=== PATIENT | male | born 1990 | race Caucasian/White ===

== ENCOUNTER 2019-12-12 02:00 | Emergency (ER) | payer OTHER, SELFPAY ==
[2019-12-12 03:52] LABS: ALT/SGPT 26 U/L (12-78); AST/SGOT 12 U/L (15-37); Albumin 4.3 g/dL (3.4-5.0); Alkaline Phosphatase 65 U/L (45-117); BUN Blood Urea Nitrogen 11 mg/dL (7-18); Bicarbonate 27 mmol/L (21-32); Bilirubin Direct < 0.1 mg/dL (0-0.2); Bilirubin Total 0.2 mg/dL (0.2-1.0); Glucose Level 90 mg/dL (74-106); Potassium 3.6 mmol/L (3.5-5.1); Protein, Total 7.5 g/dL (6.4-8.2); Sodium Level 142 mmol/L (136-145)
[2019-12-12 03:57] LABS: Protime INR 1.07
[2019-12-12 04:03] LABS: Basophils % 0.2 % (0-1.3); Hematocrit 48.4 % (39.6-49.0); Lymphocytes % 15.2 % (15.3-44.8); MPV 10.1 fL (7.6-11.3); RBC Red Blood Cell Count 5.07 M/uL (4.33-5.43)
--- NOTE | 2019-12-12 05:14 | ER ---
Nurse's Notes [facility] Name: Sigifredo Sutherland Age: 29 yrs Sex: Male : 1990 Arrival Date: 12/12/2019 Time: 02:02 Bed 6 Private MD: Diagnosis: Major depressive disorder, single episode;Suicidal ideations Presentation: 12/11 02:22 Chief complaint: Patient states: STRUGGLES WITH DEPRESSION. WENT INTO THE WATER BUT rv THEN DECIDED TO CALL THE MOTHER. NO CONCRETE PLAN TO HURT HIMSELF. DENIES HURTING OTHERS. VERBALIZED, "NO VALUE IN LIFE", "BRING PAIN TO OTHERS", "HURTING FOR A LONG TIME". Coronavirus screen: The patient has NOT traveled to a country currently being monitored by the [facility] within the last 14 days. Proceed with normal triage procedures. The patient has NOT had contact with any known and/or suspected case of coronavirus. Proceed with normal triage procedures. Ebola Screen: No symptoms or risks identified at this time. Initial Sepsis Screen: Does the patient meet any 2 criteria? No. Patient's initial sepsis screen is negative. Does the patient have a suspected source of infection? No. Patient's initial sepsis screen is negative. Risk Assessment: Do you want to hurt yourself or someone else? Patient reports desire/thoughts of hurting themselves or someone else. Provider notified. 02:22 Method Of Arrival: Ambulatory 02:22 Acuity: MAGDALENE 2 rv 02:33 Onset of symptoms was December 12, 2019 at 01:00. rv Historical: - Allergies: 02:28 No Known Allergies; rv - PMHx: 02:28 Depression; ADD/ADHD; Anxiety; rv - PSHx: 02:28 None; rv - Immunization history:: Adult Immunizations up to date. - Social history:: Smoking status: Patient reports use of chewing tobacco. Screenin:31 Abuse screen: Denies threats or abuse. Denies injuries from another. Nutritional rv screening: No deficits noted. Tuberculosis screening: No symptoms or risk factors identified. Fall Risk None identified. Assessment: 02:29 General: Appears distressed, Behavior is crying. Pain: Denies pain. Neuro: Level of rv Consciousness is awake, alert, obeys commands, Oriented to person, place, time, situation. Cardiovascular: Patient's skin is warm and dry. Respiratory: Airway is patent. Derm: Skin is intact. 05:13 Reassessment: Patient appears in no apparent distress at this time. Patient and/or rv family updated on plan of care and expected duration. Pain level reassessed. Patient is alert, oriented x 3, equal unlabored respirations, skin warm/dry/pink. report given to Mohsen Lobo. 06:48 Reassessment: Patient appears in no apparent distress at this time. Patient and/or rv family updated on plan of care and expected duration. Pain level reassessed. Patient is alert, oriented x 3, equal unlabored respirations, skin warm/dry/pink. Psych: 02:31 Subjective: Patient's mood is sad, hopeless, Delusions are denied, Hallucinations are rv denied Having thoughts of suicide. Denies suicidal plan. Objective: Patient is cooperative, Speech is normal. Interventions: Removed personal items and placed in bag. Patient placed in hospital gown. Searched person for dangerous items. Belonging list filled out. Suicide Risk Assessment: Sad Person Scale: Sex of patient: Male: Score 1 point. Age of patient: Score 1 point if patient 15-34. Depression: Score 1 point if signs of depression are present. Previous Attempt: Score 0 point if patient has not previously attempted suicide. Substance Abuse: Score 0 point if patient does not abuse alcohol or drugs. Rational Thinking: Score 1 point if patient is lacking rational thinking. Social Support: Score 0 if social support is present/available. Relationship: Score 1 point if patient is , , , or for a single male TOTAL POINTS: If total points are 5-6, proposed clinical action is to strongly consider hospitalization, depending upon confidence in the follow-up arrangement. Implement suicide precautions. Safety Checks: Personal items have been removed. Door is open. Visitors are present. Commitment: Patient will be a voluntary commitment. Vital Signs: 02:22 BP 143 / 94; Pulse 109; Resp 19; Temp 98.6; Pulse Ox 99% ; Weight 105.69 kg (R); Height rv 6 ft. 3 in. (190.50 cm); Pain 0/10; 05:08 BP 119 / 68 RA Supine (auto/reg); Pulse 62; Resp 17; Temp 98.2(O); Pulse Ox 99% on R/A; ar5 02:22 Body Mass Index 29.12 (105.69 kg, 190.50 cm) rv ED Course: 02:02 Patient arrived in ED. ag3 02:16 Saad Prince MD is Attending Physician. tw4 02:21 Amari Toussaint, RN is Primary Nurse. rv 02:27 Triage completed. rv 02:28 Arm band placed on Patient placed in the treatment room, on a stretcher, Patient rv notified of wait time. 02:33 Patient has correct armband on for positive identification. rv 02:43 EKG done, by ED staff, reviewed by Saad Prince MD. ar5 03:00 Inserted saline lock: 20 gauge in left antecubital area, using aseptic technique. Blood rv collected. 04:15 Initiated transfer by phone to [facility]. mt 04:18 Faxed chart to [facility], [facility], [facility], [facility], [facility], [facility], [facility] and [facility]. 04:[address] [facility] called for Nurse to Nurse with Hiren. ms 05:[address] [facility] called for DR to DR report. mt 05:14 No provider procedures requiring assistance completed. rv 06:49 IV discontinued, intact, bleeding controlled, No redness/swelling at site. Pressure rv dressing applied. Administered Medications: No medications were administered Outcome: 05:13 ER care complete, transfer ordered by . tw4 06:48 Transferred by ground EMS to other acute care facility: [facility]. Transfer rv form completed. X-rays sent w/ patient. 06:48 Condition: unchanged 06:48 Discharge instructions given to patient, family, Instructed on the need for transfer, Demonstrated understanding of instructions. 06:49 Patient left the ED. rv Signatures: Sarah Ryan ms Saad Prince MD MD tw4 Amari Toussaint, RN RN rv April Meier 3 Lin Miranda ar5 Corrections: (The following items were deleted from the chart) 02:43 02:43 EKG done, by ED staff, ar5 ar5 04:58 04:56 Initiated transfer by phone with [facility] vaishali ms
--- NOTE | 2019-12-12 05:14 | EDPHYS ---
Physician Documentation [facility] Name: Sigifredo Sutherland Age: 29 yrs Sex: Male : 1990 Arrival Date: 12/12/2019 Time: 02:02 Bed 6 Private MD: ED Physician Saad Prince HPI: 12/11 04:04 This 29 yrs old Male presents to ER via Ambulatory with complaints of tw4 Suicidal Ideation, Depression. 04:04 The patient presents to the emergency department with suicide ideation. Onset: The tw4 symptoms/episode began/occurred today. Past psychiatric history: Prior diagnosis: no previous psychiatric diagnosis known, Psychiatric medications include: none. Associated signs and symptoms: The patient has no apparent associated signs or symptoms. Severity of symptoms: At their worst the symptoms were moderate in the emergency department the symptoms are unchanged. The patient has not experienced similar symptoms in the past. 04:05 The patient presents to the emergency department with suicide ideation, and the patient tw4 has a plan, drown himslef. Historical: - Allergies: 02:28 No Known Allergies; rv - PMHx: 02:28 Depression; ADD/ADHD; Anxiety; rv - PSHx: 02:28 None; rv - Immunization history:: Adult Immunizations up to date. - Social history:: Smoking status: Patient reports use of chewing tobacco. ROS: 04:04 Constitutional: Negative for fever, chills, and weight loss, Eyes: Negative for injury, tw4 pain, redness, and discharge, Cardiovascular: Negative for chest pain, palpitations, and edema, Respiratory: Negative for shortness of breath, cough, wheezing, and pleuritic chest pain, Abdomen/GI: Negative for abdominal pain, nausea, vomiting, diarrhea, and constipation, Back: Negative for injury and pain, MS/Extremity: Negative for injury and deformity, Skin: Negative for injury, rash, and discoloration. 04:04 Neuro: Negative for headache, weakness, numbness, tingling, and seizure. 04:04 Neuro: Positive for 04:04 Psych: Positive for depression, suicide gesture, suicidal ideation. Exam: 04:08 Constitutional: This is a well developed, well nourished patient who is awake, alert, tw4 and in no acute distress. Head/Face: Normocephalic, atraumatic. Chest/axilla: Normal chest wall appearance and motion. Nontender with no deformity. No lesions are appreciated. Cardiovascular: Regular rate and rhythm with a normal S1 and S2. No gallops, murmurs, or rubs. Normal PMI, no JVD. No pulse deficits. Respiratory: Lungs have equal breath sounds bilaterally, clear to auscultation and percussion. No rales, rhonchi or wheezes noted. No increased work of breathing, no retractions or nasal flaring. Abdomen/GI: Soft, non-tender, with normal bowel sounds. No distension or tympany. No guarding or rebound. No evidence of tenderness throughout. Back: No spinal tenderness. No costovertebral tenderness. Full range of motion. MS/ Extremity: Pulses equal, no cyanosis. Neurovascular intact. Full, normal range of motion. Neuro: Awake and alert, GCS 15, oriented to person, place, time, and situation. Cranial nerves II-XII grossly intact. Motor strength 5/5 in all extremities. Sensory grossly intact. Cerebellar exam normal. Normal gait. Vital Signs: 02:22 BP 143 / 94; Pulse 109; Resp 19; Temp 98.6; Pulse Ox 99% ; Weight 105.69 kg (R); Height rv 6 ft. 3 in. (190.50 cm); Pain 0/10; 05:08 BP 119 / 68 RA Supine (auto/reg); Pulse 62; Resp 17; Temp 98.2(O); Pulse Ox 99% on R/A; ar5 02:22 Body Mass Index 29.12 (105.69 kg, 190.50 cm) rv MDM: 02:22 Patient medically screened. tw4 04:08 Differential diagnosis: acute psychotic break, depression. Data reviewed: vital signs, tw4 nurses notes. Data reviewed: lab test result(s), CBC, drug level(s), hepatic panel, EKG. Data interpreted: Pulse oximetry: Interpretation: normal. Test interpretation: by ED physician or midlevel provider: ECG. Counseling: I had a detailed discussion with the patient and/or guardian regarding: the historical points, exam findings, and any diagnostic results supporting the discharge/admit diagnosis, lab results. Awaiting: Psychiatric publisher assistant. 12/11 02:22 Order name: Acetaminophen [facility] 12/11 02:22 Order name: Basic Metabolic Panel 12/11 02:22 Order name: CBC with Diff 12/11 02:22 Order name: ETOH Level 12/11 02:22 Order name: Hepatic Function 12/11 02:22 Order name: PT-INR 12/11 02:22 Order name: Ptt, Activated 12/11 02:22 Order name: Salicylate 12/11 02:22 Order name: Urine Drug Screen 12/11 02:22 Order name: EKG; Complete Time: 02:23 12/11 02:22 Order name: EKG - Nurse/Tech; Complete Time: 02:43 12/11 02:22 Order name: IV Saline Lock; Complete Time: 02:43 12/11 02:22 Order name: Labs collected and sent; Complete Time: 02:43 12/11 02:22 Order name: Urine Dipstick-Ancillary (obtain specimen); Complete Time: 04:56 tw4 EC:08 Rate is 99 beats/min. Rhythm is regular. QRS Vian is Normal. HI interval is normal. QRS tw4 interval is normal. QT interval is normal. No Q waves. T waves are Normal. No ST changes noted. Clinical impression: Normal ECG. Interpreted by me. Reviewed by me. Administered Medications: No medications were administered Disposition: 12/12/19 05:13 Transfer ordered to Psych Facility. Diagnosis are Major depressive disorder, single episode, Suicidal ideations. - Reason for transfer: Higher level of care. - Accepting physician is Dr Cisneros. - Condition is Stable. - Problem is new. - Symptoms are unchanged. Signatures: Dispatcher [employer] Saad Olivares MD MD tw4 Amari Toussaint RN RN rv Corrections: (The following items were deleted from the chart) 06:49 05:13 12/12/2019 05:13 Transfer ordered to Psych Facility. Diagnosis is Major rv depressive disorder, single episode; Suicidal ideations. Reason for transfer: Higher level of care. Accepting physician is Dr Cisneros. Condition is Stable. Problem is new. Symptoms are unchanged. tw4
[2019-12-12 05:17] LABS: Barbiturates NEGATIVE (NEGATIVE); Benzodiazepines NEGATIVE (NEGATIVE); Cocaine POSITIVE (NEGATIVE); METHAMPHETAM NEGATIVE (NEGATIVE); Methadone NEGATIVE (NEGATIVE); Opiates NEGATIVE (NEGATIVE); Phencyclidine NEGATIVE (NEGATIVE); THC Cannibis POSITIVE (NEGATIVE)
[2019-12-12 06:57] VITALS: O2SAT 99
[2019-12-12 06:58] VITALS: BP 119/68; TEMP 98.2
--- NOTE | 2019-12-12 08:49 | EKG ---
Test Date: 2019-12-12 Test Time: 02:38:34 Assembly Hand: LIBRADO MEASUREMENT RESULTS: Intervals: Rate: 99 [place]: 156 QRSD: 92 QT: 332 QTc: 426 [place]: P: 63 [place]: 156 QRS: 3 T: 45 INTERPRETIVE STATEMENTS: Normal sinus rhythm Normal ECG No previous ECG available for comparison Electronically Signed On 12-12-19 08:48:16 CDT by Maciel Gambino
== END 2019-12-12 06:49 ==
LOC: ER 02:00
DX: R45.851 Suicidal ideations (principal); F17.220 Nicotine dependence, chewing tobacco, uncomplicated
CPT/HCPCS: 36415; 80048; 80076; 80307; 80320; 80329; 85025; 85610; 85730; 93005; 99285

== ENCOUNTER 2023-01-25 08:17 | Emergency (ER) | payer SELFPAY ==
--- OUTSIDE RECORDS SUMMARY | 2023-01-25 08:20 | XMS REPORT | Continuity of Care Document ---
:1990 Author Organization [facility] t Address [address] [place] [address] Care Team Providers Name Role Phone CLIFF BRAY Primary Care Physician Unavailable MATHIEU BROOKE Attending Clinician Unavailable Problems This patient has no known problems. Allergies, Adverse Reactions, Alerts Allergy Allergy Status Severity Reaction(s) Onset Inactive Treating Comm ents Source Name Type Date Date Clinician NO KNOWN Drug Active [facility] Medications This patient has no known medications. Procedures This patient has no known procedures. Encounters Start End Encounter Admission Attending Care Care Encounter Source Date/Time Date/Time Type Type Clinicians Facility Department ID 2020-12-29 2020-12-29 Outpatient Mariangel BROOKE [facility] [id number] [facility] 17:00:00 16:59:45 MATHIEU [facility] 2020-12-21 2020-12-21 Outpatient [facility] [id number] [facility] 14:15:00 14:15:00 [facility] 2020-11-23 2020-11-23 [facility] [id number] [facility] 14:10:00 14:10:00 [facility] Results This patient has no known results.
[2023-01-25] MEDS ORDERED: NA CHLORIDE 0.9% 1,000 ML ONE ×2 (09:18→10:10)
[2023-01-25] MEDS ORDERED: FAMOTIDINE 20 MG/2 ML VIAL IV ONE (09:18)
[2023-01-25] MEDS ORDERED: ONDANSETRON 4 MG/2 ML VIAL ONE ×2 (09:18→10:25)
[2023-01-25] MEDS ORDERED: KETOROLAC 30 MG/ML INJ ONE (09:18)
[2023-01-25 09:24] LABS: Absolute Lymphocytes (CBC) 1.2 K/uL (0.7-4.9); Hematocrit 46.1 % (39.6-49.0); Lymphocytes % 9.6 % (15.3-44.8); MCV 92.9 fL (80-100); MPV 9.1 fL (7.6-11.3); RBC Red Blood Cell Count 4.96 M/uL (4.33-5.43)
[2023-01-25 09:53] LABS: Albumin 5.1 g/dL (3.4-5.0); Potassium 4.1 mEq/L (3.5-5.1); Protein, Total 8.5 g/dL (6.4-8.2)
--- NOTE | 2023-01-25 11:42 | ER ---
Nurse's Notes [facility] Name: Sigifredo Sutherland Age: 32 yrs Sex: Male : 1990 Arrival Date: 01/25/2023 Time: 08:17 Bed 16 Private MD: Diagnosis: Nausea with vomiting, unspecified;Rhabdomyolysis;Dehydration Presentation: 01/25 08:39 Chief complaint: Patient states: N/V that began 12 hours ago. Coronavirus screen: ss Client denies travel out of the [place] in the last 14 days. Ebola Screen: Patient denies exposure to infectious person. Patient denies travel to an Ebola-affected area in the 21 days before illness onset. Initial Sepsis Screen: Does the patient meet any 2 criteria? No. Patient's initial sepsis screen is negative. Does the patient have a suspected source of infection? No. Patient's initial sepsis screen is negative. Risk Assessment: Do you want to hurt yourself or someone else? Patient reports no desire to harm self or others. Onset of symptoms was January 24, 2023. 08:39 Method Of Arrival: Ambulatory 08:39 Acuity: MAGDALENE 3 Historical: - Allergies: 08:43 No Known Allergies; ss - Home Meds: 08:43 None [Active]; ss - PMHx: 08:43 ADD/ADHD; Anxiety; Depression; ss - PSHx: 08:43 None; ss - Immunization history:: Client reports receiving the 2nd dose of the Covid vaccine. - Social history:: Smoking status: Reported history of juuling and/or vaping. Screenin:[address] [facility] ED Fall Risk Assessment (Adult) History of falling in the last 3 months, ph including since admission No falls in past 3 months (0 pts) Confusion or Disorientation No (0 pts) Intoxicated or Sedated No (0 pts) Impaired Gait No (0 pts) Mobility Assist Device Used No (0 pt) Altered Elimination No (0 pt) Score/Fall Risk Level 0 - 2 = Low Risk Oriented to surroundings, Maintained a safe environment, Hourly rounding (assess needs \T\ fall precautionary measures) done. Abuse screen: Denies threats or abuse. Denies injuries from another. Nutritional screening: No deficits noted. Tuberculosis screening: No symptoms or risk factors identified. Assessment: 09:38 General: Appears in no apparent distress. uncomfortable, Behavior is calm, cooperative, ph appropriate for age, Reports chills for Denies fever. Pain: Complains of pain in back. Neuro: Level of Consciousness is awake, alert, obeys commands, Oriented to person, place, time, situation. Cardiovascular: Capillary refill < 3 seconds in bilateral fingers Patient's skin is warm and dry. Respiratory: Airway is patent Respiratory effort is even, unlabored. GI: Abdomen is non-distended, Reports nausea, vomiting, Patient currently denies abdominal pain, diarrhea. Derm: Skin is pink, warm \T\ dry. Musculoskeletal: Circulation, motion, and sensation intact. Range of motion: intact in all extremities. 12:12 Reassessment: Patient appears in no apparent distress at this time. Patient and/or ph family updated on plan of care and expected duration. Pain level reassessed. Patient is alert, oriented x 3, equal unlabored respirations, skin warm/dry/pink. Pt given water and crackers for PO challenge approx 15 minutes ago, now actively vomiting. Vital Signs: 08:39 BP 137 / 79; Pulse 61; Resp 18; Temp 97.9(O); Pulse Ox 100% on R/A; Weight 113.4 kg; ss Height 6 ft. 0 in. ; Pain 8/10; 09:39 BP 120 / 79; Pulse 64; Resp 18; Pulse Ox 98% on R/A; ph 08:39 Body Mass Index 33.91 (113.40 kg, 182.88 cm) ss 08:39 Pain Scale: Adult ss ED Course: 08:19 Patient arrived in ED. rg4 08:21 Elise Barragan FNP-C [facility]. kb 08:21 Asher Madison MD is Attending Physician. kb 08:39 Arm band placed on right wrist. ss 08:40 Triage completed. ss 08:49 Gertrude Shanks, LATISHA is Primary Nurse. ko1 09:10 Initial lab(s) drawn, by me, sent to lab. Inserted saline lock: 20 gauge in left vg1 antecubital area, using aseptic technique. Blood collected. 09:39 Patient has correct armband on for positive identification. Placed in gown. Bed in low ph position. Call light in reach. Side rails up X 1. Pulse ox on. NIBP on. Door closed. Noise minimized. Lights dimmed. Warm blanket given. 12:43 No provider procedures requiring assistance completed. IV discontinued, intact, ph bleeding controlled, No redness/swelling at site. Pressure dressing applied. Administered Medications: 09:21 Drug: NS 0.9% IV 1000 ml Route: IV; Rate: 1 bolus; Site: left antecubital; ph 10:27 Follow up: Response: No adverse reaction; IV Status: Completed infusion; IV Intake: ph 1000ml 09:21 Drug: Famotidine IVP 20 mg Route: IVP; Site: left antecubital; ph 10:27 Follow up: Response: No adverse reaction ph 09:21 Drug: Ondansetron IVP 4 mg Route: IVP; Site: left antecubital; ph 10:27 Follow up: Response: No adverse reaction ph 09:22 Drug: TORadol - Ketorolac IVP 15 mg Route: IVP; Site: left antecubital; ph 10:27 Follow up: Response: No adverse reaction ph 09:55 CANCELLED (Duplicate Order): NS 0.9% IV 1000 ml IV at 1000 ml once kb 10:26 Drug: NS 0.9% IV 1000 ml Route: IV; Rate: 1000 ml; Site: left antecubital; ph 12:44 Follow up: Response: No adverse reaction; IV Status: Completed infusion; IV Intake: ph 1000ml 10:27 Drug: Ondansetron IVP 4 mg Route: IVP; Site: left antecubital; ph 10:27 Follow up: Response: No adverse reaction ph 12:14 Drug: Promethazine IM 25 mg Route: IM; Site: right deltoid; ph 12:43 Follow up: Response: No adverse reaction; Nausea is decreased; Vomiting decreased ph Medication: 08:43 VIS not applicable for this client. ss Intake: 10:27 IV: 1000ml; Total: 1000ml. ph 12:44 IV: 1000ml; Total: 2000ml. ph Outcome: 11:41 Discharge ordered by . kb 12:43 Discharged to home ambulatory, with family. ph 12:43 Condition: good 12:43 Discharge instructions given to patient, family, Instructed on discharge instructions, follow up and referral plans. medication usage, Demonstrated understanding of instructions, follow-up care, medications, Prescriptions given X 2. 12:51 Patient left the ED. ph Signatures: Elise Barragan, DATA SYSTEMS MANAGER-C DATA SYSTEMS MANAGER-Ckb Sherrell Bright, RN RN ss Jannet Barber, RN RN ph Tessie Hernandez4 Martina Hernandez, RN RN vg1 Gertrude Shanks, RN RN ko1
--- NOTE | 2023-01-25 11:42 | EDPHYS ---
Physician Documentation [facility] Name: Sigifredo Sutherland Age: 32 yrs Sex: Male : 1990 Arrival Date: 01/25/2023 Time: 08:17 Bed 16 Private MD: ED Physician Asher Madison HPI: 01/25 09:05 This 32 yrs old Male presents to ER via Ambulatory with complaints of Nausea/Vomiting. kb 09:05 The patient presents to the emergency department with nausea, vomiting. Onset: The kb symptoms/episode began/occurred 12 hour(s) ago. Possible causes: unknown. The symptoms are aggravated by nothing. The symptoms are alleviated by nothing. Associated signs and symptoms: Pertinent positives: nausea, vomiting, Pertinent negatives: abdominal pain, constipation, diarrhea, fever. Severity of symptoms: At their worst the symptoms were moderate in the emergency department the symptoms are unchanged. The patient has not experienced similar symptoms in the past. The patient has not recently seen a physician. Patient is a 32-year-old male with a history of anxiety, depression, ADHD who presents for nausea and vomiting that started 12 hours ago. States he has been having an episode of vomiting every 15 minutes. Denies any hematemesis. Reports muscle cramps. Reports soreness from vomiting but denies any abdominal pain. Historical: - Allergies: 08:43 No Known Allergies; ss - Home Meds: 08:43 None [Active]; ss - PMHx: 08:43 ADD/ADHD; Anxiety; Depression; ss - PSHx: 08:43 None; ss - Immunization history:: Client reports receiving the 2nd dose of the Covid vaccine. - Social history:: Smoking status: Reported history of juuling and/or vaping. ROS: 09:05 Constitutional: Negative for fever, chills, and weight loss. kb 09:05 Abdomen/GI: Positive for nausea and vomiting, Negative for abdominal pain, diarrhea, constipation. 09:05 All other systems are negative. Exam: 09:05 Constitutional: This is a well developed, well nourished patient who is awake, alert, kb and in no acute distress. Head/Face: Normocephalic, atraumatic. ENT: Moist Mucous membranes Cardiovascular: Regular rate and rhythm with a normal S1 and S2. No gallops, murmurs, or rubs. No pulse deficits. Respiratory: Respirations even and unlabored. No increased work of breathing. Talking in full sentences Abdomen/GI: Soft, non-tender. No distention Skin: Warm, dry with normal turgor. Normal color. MS/ Extremity: Pulses equal, no cyanosis. Neurovascular intact. Full, normal range of motion. Neuro: Awake and alert, GCS 15, oriented to person, place, time, and situation. Moves all extremities. Normal gait. 10:27 ECG was reviewed by the Attending Physician. kb Vital Signs: 08:39 BP 137 / 79; Pulse 61; Resp 18; Temp 97.9(O); Pulse Ox 100% on R/A; Weight 113.4 kg; ss Height 6 ft. 0 in. ; Pain 8/10; 09:39 BP 120 / 79; Pulse 64; Resp 18; Pulse Ox 98% on R/A; ph 08:39 Body Mass Index 33.91 (113.40 kg, 182.88 cm) ss 08:39 Pain Scale: Adult ss MDM: 08:21 Patient medically screened. kb 09:05 Differential diagnosis: gastritis, pancreatitis, viral gastroenteritis, kb gastroenteritis. Data reviewed: vital signs, nurses notes. 10:37 Test considered but Not performed: CT: CT abd/pelvis considered due to elevated WBC, kb but pt refused at this time. Discussed need to return for CT if abd pain or fever present. Historians other than the Patient: Parent: mother and father. Counseling: I had a detailed discussion with the patient and/or guardian regarding: the historical points, exam findings, and any diagnostic results supporting the discharge/admit diagnosis, lab results, the need for outpatient follow up, a family practitioner, to return to the emergency department if symptoms worsen or persist or if there are any questions or concerns that arise at home. 11:40 ED course: Pt is feeling better and tolerating po intake. Will discharge home. pt given kb strict return precautions. 01/25 08:41 Order name: CBC with Diff; Complete Time: 09:27 kb 01/25 08:41 Order name: CMP; Complete Time: 09:54 kb 01/25 08:41 Order name: Lipase; Complete Time: 09:54 kb 01/25 08:41 Order name: CPK; Complete Time: 09:54 kb 01/25 09:55 Order name: EKG; Complete Time: 09:56 kb 01/25 08:41 Order name: IV Saline Lock; Complete Time: 09:10 kb 01/25 08:41 Order name: Labs collected and sent; Complete Time: 09:10 kb 01/25 09:55 Order name: EKG - Nurse/Tech; Complete Time: 10:26 kb 01/25 10:37 Order name: PO challenge; Complete Time: 12:07 kb EC:27 Rate is 50 beats/min. Rhythm is regular. QRS [place] is Normal. [place] interval is normal at kb 124 msec. QRS interval is normal at 94 msec. QT interval is normal at 413 msec. Administered Medications: 09:21 Drug: NS 0.9% IV 1000 ml Route: IV; Rate: 1 bolus; Site: left antecubital; ph 10:27 Follow up: Response: No adverse reaction; IV Status: Completed infusion; IV Intake: ph 1000ml 09:21 Drug: Famotidine IVP 20 mg Route: IVP; Site: left antecubital; ph 10:27 Follow up: Response: No adverse reaction ph 09:21 Drug: Ondansetron IVP 4 mg Route: IVP; Site: left antecubital; ph 10:27 Follow up: Response: No adverse reaction ph 09:22 Drug: TORadol - Ketorolac IVP 15 mg Route: IVP; Site: left antecubital; ph 10:27 Follow up: Response: No adverse reaction ph 09:55 CANCELLED (Duplicate Order): NS 0.9% IV 1000 ml IV at 1000 ml once kb 10:26 Drug: NS 0.9% IV 1000 ml Route: IV; Rate: 1000 ml; Site: left antecubital; ph 12:44 Follow up: Response: No adverse reaction; IV Status: Completed infusion; IV Intake: ph 1000ml 10:27 Drug: Ondansetron IVP 4 mg Route: IVP; Site: left antecubital; ph 10:27 Follow up: Response: No adverse reaction ph 12:14 Drug: Promethazine IM 25 mg Route: IM; Site: right deltoid; ph 12:43 Follow up: Response: No adverse reaction; Nausea is decreased; Vomiting decreased ph Disposition: 15:17 Co-signature as Attending Physician, Asher Madison MD I reviewed the patient's care rn provided by the Advanced Practice Provider and agree with the diagnosis and treatment plan. Disposition Summary: 01/25/23 11:41 Discharge Ordered Location: Home kb Condition: Stable kb Diagnosis - Nausea with vomiting, unspecified kb - Rhabdomyolysis kb - Dehydration kb Followup: kb - With: Emergency Department - When: As needed - Reason: Worsening of condition Followup: kb - With: Private Physician - When: 2 - 3 days - Reason: Recheck today's complaints, Continuance of care, Re-evaluation by your physician Discharge Instructions: - Discharge Summary Sheet kb - Rhabdomyolysis kb - Nausea and Vomiting, Adult, [id number] kb Forms: - Medication Reconciliation Form kb - Thank You Letter kb - Antibiotic Education kb - Prescription Opioid Use kb - School release form ph Prescriptions: - ondansetron 4 mg Oral Tablet,disintegrating - take 1 tablet by ORAL route every 6 hours As needed; 20 tablet; Refills: 0, kb Product Selection Permitted - promethazine 25 mg Rectal suppository - insert 1 suppository by RECTAL route every 8 hours As needed; 10 suppository; kb Refills: 0, Product Selection Permitted Signatures: Dispatcher [employer] EDMS Elise Barragan, INTRANET DEVELOPER-C INTRANET DEVELOPER-Ckb Asher Madison MD MD rn Sherrell Bright RN RN ss Jannet Barber RN RN ph Corrections: (The following items were deleted from the chart) 09:55 09:55 NS 0.9% IV 1000 ml IV at 1000 ml once ordered. kb kb 10:16 09:57 Abdomen Pelvis W Con+CT.RAD.BRZ ordered. EDMS EDMS
[2023-01-25] MEDS ORDERED: PROMETHAZINE INJ 25 MG/ML AMP ONE (12:15)
[2023-01-25 13:18] VITALS: BP 120/79; O2SAT 98
[2023-01-25 13:19] VITALS: TEMP 97.9
--- NOTE | 2023-01-26 14:10 | EKG ---
Test Date: 2023-01-25 Test Time: 10:15:03 Environmental Services Worker: PH MEASUREMENT RESULTS: Intervals: Rate: 50 CO: 124 QRSD: 94 QT: 454 QTc: 413 Cory: P: 25 CO: 124 QRS: 7 T: 27 INTERPRETIVE STATEMENTS: Sinus bradycardia Septal infarct, age undetermined Abnormal ECG Compared to ECG 12/12/2019 02:38:34 Myocardial infarct finding now present Sinus rhythm no longer present Electronically Signed On 01-26-23 14:08:20 CDT by Donny Ojeda
== END 2023-01-25 12:51 | disposition home or self-care (01) ==
LOC: ER 08:17
DX: M62.82 Rhabdomyolysis (principal); E86.0 Dehydration
CPT/HCPCS: 36415; 80053; 82550; 83690; 85025; 93005; 96361; 96372; 96374; 96375; 99284; J2405; J2550; J7030

== ENCOUNTER 2024-02-18 11:06 | Emergency (ER) | payer SELFPAY ==
--- OUTSIDE RECORDS SUMMARY | 2024-02-18 11:09 | XMS REPORT | Continuity of Care Document ---
Author Name Unknown Address [address] [facility]. [address] Address [address] [facility]. [address] [place] [address] Care Team Providers Care Tankage Supervisor Name Role Phone CLIFF BRAY Primary Care Physician Unavailab MATHIEU Garcia Attending Clinician Unavailable Allergies, Adverse Reactions, Alerts Allergy Name Allergy Type Status Severity Reaction(s) Onset Date Inactive Date Treating Clinician Comments Source NO KNOWN ALLERGIE S Drug Class Active [facility] Encounters Start Date/Time End Date/Time Encounter Type Admission Type Attending Clinicians Care Facility Care Department Encounter ID Source 2020-12-29 17:00:00 2020-12-29 16:59:45 Outpatient MATHIEU CRUZ [facility] [id number] [facility] 2020-12-21 14:15:00 2020-12-21 14:15:00 Outpatient [facility] [id number] [facility] 2020-11-23 14:10:00 2020-11-23 14:10:00 Outpatient MATHIEU CRUZ [facility] [id number] [facility]
[2024-02-18] MEDS ORDERED: NA CHLORIDE 0.9% 1,000 ML ONE (11:22)
[2024-02-18 11:36] LABS: Absolute Lymphocytes (CBC) 1.5 K/uL (0.7-4.9); Absolute Monocytes 0.7 K/uL (0.1-1.3); Basophils % 0.3 % (0-1.3); Eosinophils % 0.3 % (0-4.4); Hemoglobin 14.3 g/dL (13.6-17.9); Lymphocytes % 16.2 % (15.3-44.8); MCH 30.8 pg (27.0-35.0); MCHC 33.2 g/dL (32.0-36.0); MCV 92.8 fL (80-100); Monocytes % 7.5 % (3.3-12.3); Neutrophils % 75.7 % (41.7-73.7); Platelets 221 thou/uL (152-406); RBC Red Blood Cell Count 4.64 M/uL (4.33-5.43); Red Cell Distribution Width 13.3 % (12.1-15.2)
[2024-02-18 11:43] LABS: PT Prothrombin Time 11.1 SECONDS (9.5-12.5); PTT, Activated Partial Thromb 30.8 SECONDS (24.3-36.9); Protime INR 1.01
[2024-02-18 11:47] LABS: Barbiturates NEGATIVE (NEGATIVE); Benzodiazepines NEGATIVE (NEGATIVE); Cocaine NEGATIVE (NEGATIVE); METHAMPHETAM NEGATIVE (NEGATIVE); Methadone NEGATIVE (NEGATIVE); Opiates NEGATIVE (NEGATIVE); Phencyclidine NEGATIVE (NEGATIVE); THC Cannibis POSITIVE (NEGATIVE)
[2024-02-18 12:03] LABS: ALT/SGPT 41 U/L (16-61); AST/SGOT 15 U/L (15-37); Albumin 4.2 g/dL (3.4-5.0); Albumin/Globulin Ratio 1.4 (1.1-1.8); Alkaline Phosphatase 62 U/L (45-117); Anion Gap 11.4 mEq/L (5.0-15.0); BUN Blood Urea Nitrogen 20 mg/dL (7-18); Bicarbonate 26 mEq/L (21-32); Bilirubin Direct < 0.2 mg/dL (0-0.2); Bilirubin Total 0.2 mg/dL (0.2-1.0); Globulin 3.1 g/dL (2.3-3.5); Glomerular Filtration Rate 93 ml/min (=/>90); Glucose Level 186 mg/dL (74-106); Potassium 3.4 mEq/L (3.5-5.1); Protein, Total 7.3 g/dL (6.4-8.2); Sodium Level 137 mEq/L (136-145)
--- NOTE | 2024-02-18 12:32 | ER ---
Nurse's Notes [facility] Name: Sigifredo Sutherland Age: 33 yrs Sex: Male : 1990 Arrival Date: 02/18/2024 Time: 11:06 Bed IW10 Private MD: Diagnosis: Drug abuse counseling and surveillance;Panic disorder [episodic paroxysmal anxiety] without agoraphobia Presentation: 02/17 11:06 Chief complaint: EMS states: PT FROM HOME TOOK LSD AT 0830 AND SMOKED WEED. FEELS CHEST db PRESSURE AND VISUAL HALLUCINATIONS STATES THIS IS DIFFERENT AND CALLED 911. HR107 FOR EMS. Coronavirus screen: Client denies travel out of the [place] in the last 14 days. At this time, the client does not indicate any symptoms associated with coronavirus-19. Ebola Screen: Patient negative for fever greater than or equal to 101.5 degrees Fahrenheit, and additional compatible Ebola Virus Disease symptoms Patient denies exposure to infectious person. Patient denies travel to an Ebola-affected area in the 21 days before illness onset. No symptoms or risks identified at this time. Initial Sepsis Screen: Does the patient meet any 2 criteria? HR > 90 bpm. No. Patient's initial sepsis screen is negative. Does the patient have a suspected source of infection? No. Patient's initial sepsis screen is negative. Risk Assessment: Do you want to hurt yourself or someone else? Patient reports no desire to harm self or others. Onset of symptoms was February 18, 2024. Care prior to arrival: IV initiated. 22 GA, in the left antecubital area, Glucose check: 170. 11:06 Method Of Arrival: EMS: [facility] db 11:06 Acuity: MAGDALENE 2 db Triage Assessment: 11:06 General: Appears in no apparent distress. comfortable, Behavior is cooperative, drowsy. db Pain: Denies pain. Neuro: Level of Consciousness is awake, alert, obeys commands, Oriented to person, place, time, situation, Speech is normal, Facial symmetry appears normal. Respiratory: Airway is patent Respiratory effort is even, unlabored, Respiratory pattern is regular, symmetrical. Historical: - Allergies: 11:33 No Known Allergies; db - PMHx: :33 ADD/ADHD; Anxiety; Depression; db - Immunization history:: Adult Immunizations unknown. - Infectious Disease History:: Denies. - Social history:: Smoking status: Patient reports the use of cigarette tobacco products, unknown amount Patient uses street drugs, LSD, marijuana. Screenin:09 [facility] ED Fall Risk Assessment (Adult) History of falling in the last 3 months, db including since admission No falls in past 3 months (0 pts) Confusion or Disorientation No (0 pts) Intoxicated or Sedated No (0 pts) Impaired Gait No (0 pts) Mobility Assist Device Used No (0 pt) Altered Elimination No (0 pt) Score/Fall Risk Level 0 - 2 = Low Risk Oriented to surroundings, Maintained a safe environment. Abuse screen: Denies threats or abuse. Denies injuries from another. Nutritional screening: No deficits noted. Tuberculosis screening: No symptoms or risk factors identified. Assessment: 11:45 Reassessment: Patient appears in no apparent distress at this time. Patient and/or db family updated on plan of care and expected duration. Pain level reassessed. Patient is alert, oriented x 3, equal unlabored respirations, skin warm/dry/pink. PT REFUSED EKG AND STATES WANTS TO LEAVE AMA. PT REPORTS IS WORRIED ABOUT BEING ARREST IF STAYS CALLED A RIDE TO PICK HIM UP AND SIGNED AMA FORM. NOTIFIED DR. SHANKAR. General: Appears in no apparent distress. comfortable, Behavior is cooperative. Pain: Denies pain. Neuro: Level of Consciousness is awake, alert, obeys commands, Oriented to person, place, time, situation. Respiratory: Airway is patent Respiratory effort is even, unlabored, Respiratory pattern is regular, symmetrical. Vital Signs: 11:00 BP 134 / 62; Pulse 95; Resp 18; Pulse Ox 97% on R/A; db 11:06 BP 134 / 62; Pulse 104; Resp 16; Temp 97.9(O); Pulse Ox 99% ; Weight 108.86 kg; Height db 6 ft. 0 in. ; 11:30 BP 143 / 60; Pulse 105; Resp 18; Pulse Ox 99% on R/A; db 11:06 Body Mass Index 32.55 (108.86 kg, 182.88 cm) db ED Course: 11:06 Arm band placed on Patient placed in an exam room. db 11:09 Patient arrived in ED. eb 11:16 Eric Reddy PA is PHCP. jr8 11:16 Justo Shankar MD is Attending Physician. jr8 11:18 Leigh Ann Benoit, RN is Primary Nurse. db 11:24 Acetaminophen Sent. bc6 11:24 Basic Metabolic Panel Sent. bc6 11:24 CBC with Diff Sent. bc6 11:24 ETOH Level Sent. bc6 11:24 Hepatic Function Sent. bc6 11:24 PT-INR Sent. bc6 11:24 Ptt, Activated Sent. bc6 11:24 Salicylate Sent. bc6 11:25 Initial lab(s) drawn, by me, sent to lab. Inserted saline lock: 20 gauge in left 6 antecubital area, using aseptic technique. Blood collected. 11:32 Triage completed. db 12:09 Patient has correct armband on for positive identification. Bed in low position. Call db light in reach. Side rails up X2. Provided Education on: LABS. Client placed on continuous cardiac and pulse oximetry monitoring. NIBP monitoring applied. media monitor on. Pulse ox on. NIBP on. Administered Medications: 11:25 Drug: NS 0.9% IV 1000 ml IV at 1000 ml once Route: IV; Rate: 1000 ml; Site: left db antecubital; 12:12 Follow up: Response: No adverse reaction; IV Status: Completed infusion; IV Intake: db 500ml ; PT LEFT AMA DID NOT FINISH 1L BOLUS Medication: 12:09 VIS not applicable for this client. db Intake: 12:12 IV: 500ml; Total: 500ml. db Outcome: 12:09 AMA AMA form signed db 12:09 Condition: stable 12:09 Instructed on AMA. VERBALIZED UNDERSTANDING OF RISKS OF LEAVING. 12:52 Patient left the ED. eb Signatures: Eric Reddy PA PA jr8 Pam Roberto Leigh Ann Benoit, RN RN db AnnikaDesiree negroana [facility]
--- NOTE | 2024-02-18 12:32 | EDPHYS ---
Physician Documentation [facility] Name: Sigifredo Sutherland Age: 33 yrs Sex: Male : 1990 Arrival Date: 02/18/2024 Time: 11:06 Bed IW10 Private MD: ED Physician Justo Negron HPI: 02/17 11:50 This 33 yrs old Male presents to ER via EMS with complaints of Anxiety. jr8 11:50 The patient presents to the emergency department after a known overdose, a result of jr8 recreational substance abuse. Context: Ingested and smoked LSD and marijuana today . Associated signs and symptoms: Pertinent positives: anxiety, visual hallucinations, Chest tightness. Severity of symptoms: At their worst the symptoms were moderate in the emergency department the symptoms are unchanged. The patient has not experienced similar symptoms in the past. The patient has not recently seen a physician. Patient stated that he normally does LSD and Marijuana. Today smoked and ingested LSD but shortly after did not feel well. Describes it as anxiety feeling and has some chest tightness. . Historical: - Allergies: 11:33 No Known Allergies; db - PMHx: 11:33 ADD/ADHD; Anxiety; Depression; db - Immunization history:: Adult Immunizations unknown. - Infectious Disease History:: Denies. - Social history:: Smoking status: Patient reports the use of cigarette tobacco products, unknown amount Patient uses street drugs, LSD, marijuana. ROS: 11:50 Eyes: Negative for injury, pain, redness, and discharge, ENT: Negative for injury, jr8 pain, and discharge, Neck: Negative for injury, pain, and swelling, Respiratory: Negative for shortness of breath, cough, wheezing, and pleuritic chest pain, Abdomen/GI: Negative for abdominal pain, nausea, vomiting, diarrhea, and constipation, Back: Negative for injury and pain, MS/Extremity: Negative for injury and deformity, Skin: Negative for injury, rash, and discoloration, 11:50 Neuro: Negative for headache, weakness, numbness, tingling, and seizure, 11:50 Cardiovascular: Positive for chest pain, 11:50 Psych: Positive for anxiety, drug dependence, visual hallucinations, Exam: 11:50 Constitutional: This is a well developed, well nourished patient who is awake, alert, jr8 and in no acute distress. Eyes: Pupils equal round and reactive to light, extra-ocular motions intact. Lids and lashes normal. Conjunctiva and sclera are non-icteric and not injected. Cornea within normal limits. Periorbital areas with no swelling, redness, or edema. Cardiovascular: Tachycardic rate and rhythm with a normal S1 and S2. No gallops, murmurs, or rubs. Normal PMI, no JVD. No pulse deficits. Respiratory: Lungs have equal breath sounds bilaterally, clear to auscultation and percussion. No rales, rhonchi or wheezes noted. No increased work of breathing, no retractions or nasal flaring. Abdomen/GI: Soft, non-tender, with normal bowel sounds. No distension or tympany. No guarding or rebound. No evidence of tenderness throughout. Back: No spinal tenderness. No costovertebral tenderness. Full range of motion. Skin: Warm, dry with normal turgor. Normal color with no rashes, no lesions, and no evidence of cellulitis. MS/ Extremity: Pulses equal, no cyanosis. Neurovascular intact. Full, normal range of motion. Neuro: Awake and alert, GCS 15, oriented to person, place, time, and situation. Motor strength 5/5 in all extremities. Sensory grossly intact. Vital Signs: 11:00 BP 134 / 62; Pulse 95; Resp 18; Pulse Ox 97% on R/A; db 11:06 BP 134 / 62; Pulse 104; Resp 16; Temp 97.9(O); Pulse Ox 99% ; Weight 108.86 kg; Height db 6 ft. 0 in. ; 11:30 BP 143 / 60; Pulse 105; Resp 18; Pulse Ox 99% on R/A; db 11:06 Body Mass Index 32.55 (108.86 kg, 182.88 cm) db MDM: 11:16 Patient medically screened. jr8 12:28 Differential diagnosis: Ingestion/exposure to LSD, THC polypharmacy, over medication. jr8 Data reviewed: vital signs, nurses notes, lab test result(s), EKG. ED course: Patient wanted to leave AGAINST MEDICAL ADVICE without further care or evaluation. Patient stated that he was nervous that he was going to be arrested secondary to the drug use and giving the drugs to the police pilot. Discussed with him that we still need to make sure that he is stable to be discharged home and there is no other acute findings. Patient was alert and oriented x 4 and could answer all questions appropriately. Still wanted to leave and signed the AGAINST MEDICAL ADVICE paperwork.. 02/17 11:17 Order name: Acetaminophen; Complete Time: 12:02/17 11:17 Order name: Basic Metabolic Panel; Complete Time: 12:02/17 11:17 Order name: CBC with Diff; Complete Time: 02/17 11:17 Order name: ETOH Level; Complete Time: 02/17 11:17 Order name: Hepatic Function; Complete Time: :02/17 11:17 Order name: PT-INR; Complete Time: 02/17 11:17 Order name: Ptt, Activated; Complete Time: 02/17 11:17 Order name: Salicylate; Complete Time: 02/17 11:17 Order name: Urine Drug Screen; Complete Time: 02/17 11:17 Order name: EKG; Complete Time: 11:02/17 11:17 Order name: IV Saline Lock; Complete Time: 02/17 11:17 Order name: Labs collected and sent; Complete Time: 02/17 11:17 Order name: Suicide Screening ([place]); Complete Time: Administered Medications: : Drug: NS 0.9% IV 1000 ml IV at 1000 ml once Route: IV; Rate: 1000 ml; Site: left db antecubital; 12:12 Follow up: Response: No adverse reaction; IV Status: Completed infusion; IV Intake: db 500ml ; PT LEFT AMA DID NOT FINISH 1L BOLUS Disposition Summary: 02/18/24 12:31 Left Against Medical Advice Notes: Location: Home jr8 Problem: new jr8 Symptoms: are unchanged jr8 Condition: Stable jr8 Diagnosis - Drug abuse counseling and surveillance jr8 - Panic disorder [episodic paroxysmal anxiety] without agoraphobia jr8 Followup: jr8 - With: Private Physician - When: As needed - Reason: Recheck today's complaints, Continuance of care, Re-evaluation by your physician Signatures: Dispatcher [employer] EDEric Brown PA PA jr8 Benoit, Leihg Ann, RN RN db Corrections: (The following items were deleted from the chart) 12:14 11:17 EKG - Nurse/Tech ordered. jr8 db
[2024-02-18 13:05] VITALS: BP 143/60; TEMP 97.9; O2SAT 99
== END 2024-02-18 12:52 | disposition left against medical advice (07) ==
LOC: ER 11:06
DX: F41.0 Panic disorder [episodic paroxysmal anxiety] (principal); Z71.51 Drug abuse counseling and surveillance of drug abuser
CPT/HCPCS: 36415; 80048; 80076; 80143; 80179; 80307; 82077; 85025; 85610; 85730; 96360; 99285; J7030